=== PATIENT | female | born 1995 | race Caucasian/White ===

== ENCOUNTER 2018-04-04 22:16 | Emergency (ER) | payer SELFPAY ==
[~2018-04-04] VITALS: Ht 154.9 cm; Wt 95.5 kg
[2018-04-04 22:27] VITALS: BP 138/76; PULSE 70; RESP 20; TEMP 98.1; O2SAT 99
--- NOTE | 2018-04-04 23:23 | PD ---
HPI Chief Complaint: Abdominal Pain Time Seen by Provider: 22:40 Travel History International Travel<30 days: No Contact w/Intl Traveler<30days: No Traveled to known affect area: No History of Present Illness HPI This is a 23-year-old female who presents to the emergency department with 3 weeks of lower abdominal discomfort, constant, moderate severity associated with white vaginal discharge. She has never had cramping like this before. She has an IUD which was put in 2 years ago and she is concerned that there is a problem. She also has had chlamydia in the past. She denies any fevers or chills. PFS Past Medical History Medical History: Denies Significant Hx Tetanus Vaccination: > 5 Years Influenza Vaccination: No ?: Not LMP: 2 YEARS AGO : 1 Para: 1 Past Surgical History Surgical History: No Previous Surgery Social History Alcohol Use: Yes Tobacco Use: No Substance Use: No Allergies-Medications (Allergen,Severity, Reaction): Coded Allergies: No Known Allergies (Unverified , 04/04/18) Review of Systems Except as stated in HPI: all other systems reviewed are Neg Physical Exam Narrative GENERAL:Well appearing, no acute distress SKIN: Focused skin assessment warm and dry. HEAD: Atraumatic. Normocephalic. EYES: Pupils equal and round. No injection or drainage. ENT: Moist mucous membranes NECK: Trachea midline. CARDIOVASCULAR: Regular rate and rhythm. No murmur appreciated. RESPIRATORY: Clear to auscultation. Breath sounds equal bilaterally. GASTROINTESTINAL: Abdomen soft, moderately tender to palpation in the lower abdomen with no rebound/guarding. [employer]: White discharge in the vault with cervical motion tenderness and adnexal tenderness. IUD strings were visualized. MUSCULOSKELETAL: No obvious deformities. NEUROLOGICAL: Awake and alert. No obvious cranial nerve deficits. Moving all extremities. PSYCHIATRIC: Appropriate mood and affect; insight and judgment normal. Data Data Last Documented VS Vital Signs Date Time Temp Pulse Resp B/P (MAP) Pulse Ox O2 Delivery O2 Flow Rate FiO2 04/04/18 22:27 98.1 70 20 138/76 (96) 99 Orders Orders Gc And Chlamydia Pcr (04/04/18 22:53) Wet Prep Profile (04/04/18 22:53) Ed Urine Pregnancytest Poc (04/04/18 23:02) Urinalysis - C+S If Indicated (04/04/18 23:02) Urine Culture (04/04/18 23:20) Us Pelvis Comp W Transvaginal (04/05/18 ) Labs Laboratory Tests Test 04/04/18 23:20 04/04/18 23:50 Urine Color YELLOW Urine Turbidity CLOUDY Urine pH 6.0 Urine Specific Brandon 1.029 Urine Protein NEG mg/dL Urine Glucose (UA) NEG mg/dL Urine Ketones NEG mg/dL Urine Occult Blood NEG Urine Nitrite NEG Urine Bilirubin NEG Urine Urobilinogen 4.0 OR GREATER mg/dL Urine Leukocyte Esterase TRACE Urine RBC 2 /hpf Urine WBC 10 /hpf Urine Squamous Epithelial Cells 21 /hpf Urine Bacteria OCC /hpf Urine Mucus MANY /lpf Microscopic Urinalysis Comment CULTURE INDICATED Clue Cells (Wet Prep) PRESENT Vaginal Trichomonas (Wet Prep) NONE SEEN Vaginal Yeast (Wet Prep) NONE SEEN MDM Medical Decision Making Medical Screen Exam Complete: Yes Emergency Medical Condition: Yes Interpretation(s) Urinalysis is contaminated with squamous epithelial cells Wet prep demonstrates clue cells Differential Diagnosis Pelvic inflammatory disease, IUD migration, , urinary tract infection Narrative Course This is a 23-year-old female who presents to the emergency department with 3 weeks of lower abdominal cramping and vaginal discharge. She is concerned that her IUD may have migrated. She has a benign physical exam and normal vital signs. Pelvic exam demonstrates copious discharge and cervical motion and adnexal tenderness concerning for pelvic inflammatory disease. Patient reports that she has had chlamydia in the past. Patient will be empirically treated for PID. She was asked to follow-up with Dr. Lopez to have her IUD removed. Diagnosis Primary Impression: Pelvic inflammatory disease Patient Instructions: General Instructions Additional Instructions: Follow-up with Dr. Lopez to have your IUD removed in the setting of this infection. If you develop fever, chills, severe abdominal pain, persistent vomiting or inability to eat return to the emergency department. Your pelvic exam today did not include a Pap smear. It is important to followup with a filter cleaner on a yearly basis to be tested for cervical cancer as we do not do that from the emergency department. If there is a concern that you have sexually transmitted disease, your partner should be tested. You should followup with your filter cleaner or with the health department to get tested for other sexually transmitted diseases like HIV and syphilis, as we do not test for these in the emergency department Med/Other Pt SpecificInfo: Prescription(s) given Scripts Doxycycline Hyclate (Doxycycline Hyclate) 100 Mg Cap 100 MG PO BID for Infection, #28 CAP 0 Refills Prov: Katheryn Paige MD 04/05/18 Disposition: 01 DISCHARGE HOME Condition: Stable Katheryn Paige MD Apr 04, 2018 23:23
[2018-04-04 23:41] LABS: BACTERIA, URINE OCC /hpf; BILIRUBIN, URINE NEG (NEG); BLOOD, URINE NEG (NEG); GLUCOSE,URINE NEG (NEG); KETONE, URINE NEG (NEG); MUCUS URINE MANY /lpf (OCC); NITRITE,URINE NEG (NEG); SQUAMOUS EPITHELIAL CELL URINE 21 /hpf (0-5); URINE COLOR YELLOW (YELLW/STRAW); URINE LEUKOCYTE ESTERASE TRACE (NEG)
[2018-04-05] MEDS ORDERED: DOXY100C PO (01:23)
[2018-04-05] MEDS ORDERED: METR-1 PO (01:24)
--- NOTE | 2018-04-05 01:31 | RADRPT ---
EXAM DATE: 04/05/2018 1:04 AM EDT AGE/SEX: 23 years / Female INDICATIONS: Pelvic pain. CLINICAL DATA: This is the patient's initial encounter. Patient reports that signs and symptoms have been present for 3 weeks and indicates a pain score of 5/10. MEDICAL/SURGICAL HISTORY: . Chlamydia. Intrauterine device 2 years ago. . Intrauterine device placement. COMPARISON: No prior exams available for comparison. No external comparison. MEASUREMENTS: Uterus:__7.7 x 3.4 x 5.0 cm Endometrial Stripe:__2 mm Right Ovary:__ 2.9 x 1.9 x 1.5 cm Left Ovary:__ 2.9 x 1.9 x 2.1 cm FINDINGS: Uterus: The myometrium has homogeneous echotexture without mass. Intrauterine device is noted in the endometrium. Endometrial Stripe: The endometrial stripe displays homogeneous echotexture. Right Ovary: Ovary contains no mass or significant cystic lesion. Left Ovary: Ovary contains no mass or significant cystic lesion. Fluid: No free fluid. Other: None. CONCLUSION: 1. Intrauterine device in the endometrium. The uterus is otherwise unremarkable. 2. The ovaries are within normal limits. Electronically signed by: Sonu Walsh MD 04/05/2018 1:30 AM EDT
[2018-04-05] MEDS ORDERED: LIDOCAINE HCL 1% PF 30 ML VIAL ONE (01:41)
[2018-04-05] MEDS ORDERED: cefTRIAXone 250 MG VIAL IM ONE (01:45)
[2018-04-05] MEDS ORDERED: LIDOCAINE HCL 1% 50 ML VIAL IM ONE (01:45)
== END 2018-04-05 01:57 | disposition home or self-care (01) ==
LOC: NEPD 22:16
DX: N73.9 Female pelvic inflammatory disease, unspecified (principal)
CPT/HCPCS: 76830; 76856; 81001; 84703; 87077; 87086; 87186; 87210; 87491; 87591; 99284